=== PATIENT | female | born 1960 | race Caucasian/White ===

== ENCOUNTER 2022-03-05 13:07 | Inpatient (IN) ==
[2022-03-05] MEDS ORDERED: ONDANSETRON 4 MG/2 ML VIAL ONE (17:27)
[2022-03-05] MEDS ORDERED: ONDANSETRON 4 MG/2 ML VIAL IV STA ×2 (17:34→18:37)
[2022-03-05] MEDS ORDERED: SODIUM CHLORIDE 0.9% 1,000 ML IV STA (17:34)
[2022-03-05] MEDS ORDERED: HYDROmorphone 1 MG/1 ML SYRINGE IV STA (17:34)
[2022-03-05 17:35] LABS: Basophils % 0.5 % (0.0-0.8); Eosinophils % 0.5 % (0.00-10.9); Hematocrit 45.6 VOL% (35.7-47.0); Hemoglobin 14.9 GM/DL (12.0-16.0); Immature Granulocytes % 0.4 %; Immature Granulocytes Absolute 0.03 #; Lymphocytes # 1.1 10*3/uL (1.4-4.0); Lymphocytes % 13.8 % (21.3-54.2); Mean Corpuscular HGB Conc 32.7 GM/DL (32-36); Mean Corpuscular Volume 90.8 FL (87-102); Mean Platelet Volume 10.7 FL (9.6-12.0); Monocytes # 0.4 10*3/uL (0.11-0.8); Monocytes % 5.8 % (1.7-12.7); Platelet Count 263 T/CUMM (130-400); Red Blood Count 5.02 MC/CUMM (3.8-5.5); Red Cell Distribution Width 13.3 % (9.3-17.3); White Blood Count 7.6 T/CUMM (4-12)
[2022-03-05 17:49] LABS: Albumin 3.9 G/DL (3.4-5.0); Bilirubin,Total 4.3 MG/DL (0.20-1.00); Calcium 9.6 MG/DL (8.5-10.1); Osmolality,Calculated 276.5 MOS/KG (273-304); Potassium 3.9 MMOL/L (3.5-5.1); Total Protein 7.8 G/DL (6.4-8.2)
[2022-03-05] MEDS ORDERED: ACETAMINOPHEN 325 MG TABLET PO PRN (19:43)
[2022-03-05] MEDS ORDERED: PROMETHAZINE 25 MG/1 ML VIAL ONE (19:49)
[2022-03-05] MEDS ORDERED: PROMETHAZINE 25 MG/1 ML VIAL IM STA (19:55)
[2022-03-05] MEDS ORDERED: ENOXAPARIN 40 MG/0.4 ML SYRINGE SUBCUT SCH (21:00)
[2022-03-05] MEDS: LACTATED RINGERS 1,000 ML IV SCH (21:41)
[2022-03-06 04:57] LABS: Basophils % 0.5 % (0.0-0.8); Eosinophils % 0.6 % (0.00-10.9); Hematocrit 38.6 VOL% (35.7-47.0); Hemoglobin 12.5 GM/DL (12.0-16.0); Immature Granulocytes % 0.5 %; Immature Granulocytes Absolute 0.03 #; Lymphocytes # 1.8 10*3/uL (1.4-4.0); Lymphocytes % 27.9 % (21.3-54.2); Mean Corpuscular HGB Conc 32.4 GM/DL (32-36); Mean Corpuscular Volume 92.1 FL (87-102); Mean Platelet Volume 10.5 FL (9.6-12.0); Monocytes # 0.5 10*3/uL (0.11-0.8); Neutrophils % 62.5 % (38.7-73.9); Platelet Count 196 T/CUMM (130-400); Red Blood Count 4.19 MC/CUMM (3.8-5.5); Red Cell Distribution Width 13.4 % (9.3-17.3); White Blood Count 6.5 T/CUMM (4-12)
[2022-03-06 05:17] LABS: Albumin 2.5 G/DL (3.4-5.0); Bilirubin,Total 2.6 MG/DL (0.20-1.00); Calcium 8.3 MG/DL (8.5-10.1); Osmolality,Calculated 279.3 MOS/KG (273-304); Potassium 3.8 MMOL/L (3.5-5.1); Total Protein 6.2 G/DL (6.4-8.2)
[2022-03-06] MEDS: LACTATED RINGERS 1,000 ML IV SCH ×2 (05:52→13:48)
[2022-03-06] MEDS: MORPHINE 2 MG/1 ML SYRINGE IV PRN ×2 (08:58→15:14)
[2022-03-06] MEDS: PROMETHAZINE INJ 12.5 MG in SODIUM CHLORIDE 0.9% 50 ML IV PRN (18:24)
[2022-03-06] MEDS ORDERED: PANTOPRAZOLE 40 MG VIAL IV ONE (20:00)
[2022-03-06] MEDS ORDERED: PANTOPRAZOLE 40 MG VIAL IV SCH (21:00)
[2022-03-07] MEDS: LACTATED RINGERS 1,000 ML IV SCH ×5 (00:02→23:36)
[2022-03-07 06:03] LABS: Albumin 2.6 G/DL (3.4-5.0); Bilirubin,Total 1.8 MG/DL (0.20-1.00); Calcium 8.6 MG/DL (8.5-10.1); Osmolality,Calculated 271.7 MOS/KG (273-304); Potassium 4.2 MMOL/L (3.5-5.1); Total Protein 6.2 G/DL (6.4-8.2)
[2022-03-07] MEDS ORDERED: ONDANSETRON 4 MG/2 ML VIAL ONE ×2 (10:09→12:59)
[2022-03-07] MEDS ORDERED: LIDOCAINE 2% 5 ML VIAL ONE (10:09)
[2022-03-07] MEDS ORDERED: DEXAMETHASONE 4 MG/1 ML VIAL ONE (10:09)
[2022-03-07] MEDS ORDERED: propofoL 200 MG/20 ML VIAL IV ONE (10:09)
[2022-03-07] MEDS ORDERED: ROCURONIUM 50 MG/5 ML VIAL IV ONE (10:09)
[2022-03-07] MEDS ORDERED: MIDAZOLAM 2 MG/2 ML VIAL ONE (10:10)
[2022-03-07] MEDS ORDERED: fentaNYL 100 MCG/2 ML VIAL ONE (10:10)
[2022-03-07] MEDS ORDERED: HYDROmorphone 1 MG/1 ML SYRINGE IV PRN (10:30)
[2022-03-07] MEDS ORDERED: TISSUE ADHESIVE 1 EACH APPLICATOR TOP ONE (10:38)
[2022-03-07] MEDS ORDERED: MAGNESIUM SULF RIDER 2 GM/50 ML PREMIX IV ONE (11:00)
[2022-03-07] MEDS ORDERED: SUGAMMADEX 200 MG/2 ML VIAL IV ONE (12:22)
[2022-03-07] MEDS ORDERED: SEVOFLURANE 1 UNIT/15 MINUTE INH ONE (12:34)
[2022-03-07] MEDS ORDERED: PROMETHAZINE 25 MG/1 ML VIAL ONE (12:59)
[2022-03-07] MEDS: PROMETHAZINE INJ 12.5 MG in SODIUM CHLORIDE 0.9% 50 ML IV PRN (13:05)
[2022-03-07] MEDS ORDERED: MEPERIDINE 25 MG/1 ML VIAL IV PRN (13:07)
[2022-03-07] MEDS ORDERED: ONDANSETRON 4 MG/2 ML VIAL IV PRN ×2 (13:07→14:10)
[2022-03-07] MEDS ORDERED: PROMETHAZINE INJ 12.5 MG in SODIUM CHLORIDE 0.9% 50 ML IV PRN (13:07)
[2022-03-07] MEDS: HYDROmorphone 1 MG/1 ML SYRINGE IV PRN ×2 (13:26→17:39)
[2022-03-07] MEDS ORDERED: ALBUTEROL/IPRATROPIUM 3 ML NEB RESP TX PRN (14:10)
[2022-03-07] MEDS: PANTOPRAZOLE 40 MG VIAL IV SCH ×2 (14:53→20:29)
[2022-03-07] MEDS: DEXTROSE 5% NACL 0.9% 1,000 ML IV SCH ×2 (14:54→23:35)
[2022-03-08 04:46] LABS: Basophils % 0.2 % (0.0-0.8); Eosinophils % 0.1 % (0.00-10.9); Hemoglobin 12.4 GM/DL (12.0-16.0); Immature Granulocytes % 0.6 %; Immature Granulocytes Absolute 0.05 #; Lymphocytes # 1.2 10*3/uL (1.4-4.0); Lymphocytes % 12.8 % (21.3-54.2); Mean Corpuscular HGB Conc 32.6 GM/DL (32-36); Mean Platelet Volume 11.1 FL (9.6-12.0); Monocytes % 11.5 % (1.7-12.7); Neutrophils % 74.8 % (38.7-73.9); Platelet Count 191 T/CUMM (130-400); Red Blood Count 4.13 MC/CUMM (3.8-5.5); Red Cell Distribution Width 13.6 % (9.3-17.3); White Blood Count 9.1 T/CUMM (4-12)
[2022-03-08 04:59] LABS: PT Patient Result 10.6 SECS (10.5-12.0)
[2022-03-08 05:06] LABS: Albumin 2.6 G/DL (3.4-5.0); Calcium 8.7 MG/DL (8.5-10.1); Osmolality,Calculated 278.3 MOS/KG (273-304); Potassium 4.6 MMOL/L (3.5-5.1)
[2022-03-08] MEDS: KETOROLAC 15 MG/1 ML VIAL IV PRN ×2 (06:01→21:41)
[2022-03-08] MEDS: LACTATED RINGERS 1,000 ML IV SCH ×2 (07:55→17:36)
[2022-03-08] MEDS ORDERED: INDOMETHACIN SUPP 50 MG SUPP RECTAL ONE (08:00)
[2022-03-08] MEDS ORDERED: LACTATED RINGERS 1,000 ML IV SCH (08:00)
[2022-03-08] MEDS ORDERED: propofoL 200 MG/20 ML VIAL IV ONE (11:19)
[2022-03-08] MEDS ORDERED: SUCCINYLCHOLINE 200 MG/10 ML VIAL ONE (11:19)
[2022-03-08] MEDS ORDERED: LIDOCAINE 2% 5 ML VIAL ONE (11:19)
[2022-03-08] MEDS ORDERED: fentaNYL 100 MCG/2 ML VIAL ONE (11:20)
[2022-03-08] MEDS ORDERED: MIDAZOLAM 2 MG/2 ML VIAL ONE (11:20)
[2022-03-08] MEDS ORDERED: ONDANSETRON 4 MG/2 ML VIAL ONE (12:58)
[2022-03-08] MEDS ORDERED: SEVOFLURANE 1 UNIT/15 MINUTE INH ONE (12:58)
[2022-03-08] MEDS ORDERED: PHENYLEPHRINE 1 MG/10 ML SYRINGE IV ONE (12:58)
[2022-03-08] MEDS ORDERED: LACTATED RINGERS 1,000 ML IV ONE (12:58)
[2022-03-08] MEDS: PANTOPRAZOLE 40 MG VIAL IV SCH ×2 (17:36→21:44)
[2022-03-08] MEDS: DEXTROSE 5% NACL 0.9% 1,000 ML IV SCH (17:36)
[2022-03-09] MEDS: DEXTROSE 5% NACL 0.9% 1,000 ML IV SCH (01:01)
[2022-03-09] MEDS: LACTATED RINGERS 1,000 ML IV SCH ×2 (01:30→08:21)
[2022-03-09 04:47] LABS: Basophils % 0.8 % (0.0-0.8); Eosinophils # 0.1 10*3/uL (0.0-0.87); Eosinophils % 1.5 % (0.00-10.9); Hematocrit 33.8 VOL% (35.7-47.0); Hemoglobin 11.1 GM/DL (12.0-16.0); Immature Granulocytes % 0.4 %; Immature Granulocytes Absolute 0.02 #; Lymphocytes % 38.4 % (21.3-54.2); Mean Corpuscular HGB Conc 32.8 GM/DL (32-36); Mean Corpuscular Volume 91.1 FL (87-102); Mean Platelet Volume 12.2 FL (9.6-12.0); Monocytes # 0.6 10*3/uL (0.11-0.8); Monocytes % 10.7 % (1.7-12.7); Neutrophils % 48.2 % (38.7-73.9); Platelet Count 129 T/CUMM (130-400); Red Blood Count 3.71 MC/CUMM (3.8-5.5); White Blood Count 5.3 T/CUMM (4-12)
[2022-03-09 05:17] LABS: Albumin 2.3 G/DL (3.4-5.0); Calcium 8.3 MG/DL (8.5-10.1); Osmolality,Calculated 282.8 MOS/KG (273-304); Potassium 3.7 MMOL/L (3.5-5.1); Total Protein 5.4 G/DL (6.4-8.2)
[2022-03-09] MEDS: PANTOPRAZOLE 40 MG VIAL IV SCH (08:20)
[2022-03-09 11:34] VITALS: BP 137/77
== END 2022-03-09 14:10 | disposition home or self-care (01) | DRG 419 ==
LOC: N.ED 13:07 → SUATTDRO 19:43 → N.5E 19:43
PROVIDERS: ADMIT Internal Medicine; ATTEND Family Medicine
PROC: LAPCHOL (2022-03-07 10:59)
PROC: ERCPWSP (ICD-10-PCS; 2022-03-08 11:20)